=== PATIENT | female | born 1970 | race Hispanic/Latino ===

== ENCOUNTER 2023-03-27 23:21 | Emergency (ER) | payer OTHER ==
[2023-03-27] MEDS ORDERED: traMADol HCl 50 MG TAB ONE (23:55)
[2023-03-28] MEDS ORDERED: Methocarbamol 500 MG TAB PO SCH ×2 (00:45→23:45)
== END 2023-03-28 00:40 | disposition home or self-care (01) ==
LOC: NAV ERS 23:21
DX: S39.012A Strain of muscle, fascia and tendon of lower back, initial encounter (principal); X50.9XXA Other and unspecified overexertion or strenuous movements or postures, initial encounter
CPT/HCPCS: 99283